=== PATIENT | female | born 1985 | race Caucasian/White ===

== ENCOUNTER 2018-04-12 10:20 | Emergency (ER) | payer MEDICAID ==
[~2018-04-12] VITALS: Ht 180.3 cm; Wt 112.5 kg
[2018-04-12 10:29] VITALS: Ht 180.3 cm; Wt 112.5 kg
[2018-04-12 11:54] LABS: BASOPHIL % 0.4 % (0-2); PLATELET COUNT 118 x10^3mcL (130-400); RED CELL DISTRIBUTION WIDTH 14.2 % (11.5-14.5)
[2018-04-12 11:55] LABS: CALCIUM 8.7 mg/dL (8.5-10.1); CARBON DIOXIDE 27.3 mmol/L (21-32); CHLORIDE SERUM 104 mmol/L (98-107); CREATININE SERUM 0.7 mg/dL (0.6-1.0); GFR1 > 60 mL/min; GLUCOSE SERUM 89 mg/dL (74-106); POTASSIUM SERUM 4.2 mmol/L (3.5-5.1); SODIUM SERUM 135 mmol/L (136-145)
[2018-04-12 12:08] LABS: ALKALINE PHOSPHATASE 55 U/L (46-116); ALT/SGPT 51 U/L (14-59); AST/SGOT 36 U/L (15-37); BILIRUBIN TOTAL 0.62 mg/dL (0.20-1.00); T4(THYROXINE) 9.1 ug/dL (4.7-13.3)
[2018-04-12 12:46] LABS: ALBUMIN 3.2 g/dL (3.4-5.0); TOTAL PROTEIN, SERUM 8.6 g/dL (6.4-8.2)
[2018-04-12 14:58] VITALS: BP 123/94
== END 2018-04-12 14:58 | disposition home or self-care (01) ==
LOC: ED 10:20
PROVIDERS: Emergency Medicine
DX: N93.8 Other specified abnormal uterine and vaginal bleeding (principal); G40.909 Epilepsy, unspecified, not intractable, without status epilepticus; Z88.5 Allergy status to narcotic agent; Z88.8 Allergy status to other drugs, medicaments and biological substances; Z90.49 Acquired absence of other specified parts of digestive tract; Z98.890 Other specified postprocedural states
CPT/HCPCS: J7030

== ENCOUNTER 2018-05-17 16:20 | Emergency (ER) | payer OTHER, MEDICAID ==
[~2018-05-17] VITALS: Ht 180.3 cm; Wt 126.6 kg
[2018-05-17 16:26] VITALS: Ht 180.3 cm; Wt 126.6 kg
[2018-05-17 17:07] LABS: CALCIUM 8.8 mg/dL (8.5-10.1); CARBON DIOXIDE 26.6 mmol/L (21-32); CHLORIDE SERUM 104 mmol/L (98-107); CREATININE SERUM 0.8 mg/dL (0.6-1.0); GFR1 > 60 mL/min; GLUCOSE SERUM 123 mg/dL (74-106); POTASSIUM SERUM 3.6 mmol/L (3.5-5.1); SODIUM SERUM 139 mmol/L (136-145)
[2018-05-17 17:11] LABS: ALKALINE PHOSPHATASE 57 U/L (46-116); ALT/SGPT 33 U/L (14-59); AST/SGOT 24 U/L (15-37); BILIRUBIN TOTAL 0.35 mg/dL (0.20-1.00)
[2018-05-17 17:16] LABS: TOTAL PROTEIN, SERUM 8.3 g/dL (6.4-8.2)
[2018-05-17 17:17] LABS: ALBUMIN 3.1 g/dL (3.4-5.0)
[2018-05-17 17:28] LABS: BASOPHIL % 0.1 % (0-2); RED CELL DISTRIBUTION WIDTH 13.5 % (11.5-14.5)
[2018-05-17 17:30] LABS: PLATELET COUNT 98 x10^3mcL (130-400)
[2018-05-17 18:17] LABS: AMPHETAMINE QUAL UR NONE DETECTED (See below)
[2018-05-17 19:42] VITALS: BP 120/74
== END 2018-05-17 19:42 | disposition home or self-care (01) ==
LOC: ED 16:20
PROVIDERS: Emergency Medicine
DX: R07.89 Other chest pain (principal); J40 Bronchitis, not specified as acute or chronic; F41.9 Anxiety disorder, unspecified; Z88.0 Allergy status to penicillin; Z88.6 Allergy status to analgesic agent; Z88.5 Allergy status to narcotic agent; Z88.8 Allergy status to other drugs, medicaments and biological substances; Z90.49 Acquired absence of other specified parts of digestive tract; Z86.73 Personal history of transient ischemic attack (TIA), and cerebral infarction without residual deficits
CPT/HCPCS: 36415; 85378; J1885; Q0092

== ENCOUNTER 2018-07-05 17:11 | Emergency (ER) | payer OTHER, MEDICAID ==
[~2018-07-05] VITALS: Ht 180.3 cm; Wt 126.6 kg
[2018-07-05 17:25] VITALS: Ht 180.3 cm; Wt 126.6 kg
[2018-07-05 18:22] VITALS: BP 123/86
== END 2018-07-05 18:22 | disposition home or self-care (01) ==
LOC: ED 17:11
DX: F41.0 Panic disorder [episodic paroxysmal anxiety] (principal); G40.909 Epilepsy, unspecified, not intractable, without status epilepticus; E78.00 Pure hypercholesterolemia, unspecified; E66.9 Obesity, unspecified; F41.9 Anxiety disorder, unspecified; Z68.38 Body mass index [BMI] 38.0-38.9, adult; Z88.0 Allergy status to penicillin; Z88.5 Allergy status to narcotic agent; Z88.1 Allergy status to other antibiotic agents; Z88.6 Allergy status to analgesic agent; Z98.890 Other specified postprocedural states

== ENCOUNTER 2018-09-27 22:17 | Emergency (ER) | payer OTHER, MEDICAID ==
[~2018-09-27] VITALS: Ht 180.3 cm; Wt 111.6 kg
[2018-09-27 23:00] VITALS: Ht 180.3 cm; Wt 111.6 kg
[2018-09-28 02:47] VITALS: BP 141/75
== END 2018-09-28 02:47 | disposition home or self-care (01) ==
LOC: ED 22:17
DX: J02.9 Acute pharyngitis, unspecified (principal); K92.0 Hematemesis; F41.9 Anxiety disorder, unspecified; Z98.890 Other specified postprocedural states; Z90.49 Acquired absence of other specified parts of digestive tract; Z88.0 Allergy status to penicillin; Z88.6 Allergy status to analgesic agent; Z88.5 Allergy status to narcotic agent
CPT/HCPCS: J1100